=== PATIENT | female | born 2000 | race Caucasian/White ===

== ENCOUNTER 2022-06-14 13:56 | Emergency (ER) | payer SELFPAY ==
[2022-06-14] MEDS ORDERED: Lidocaine Viscous Sol 2% 15 ml UD Cup ONE ×2 (14:46→14:47)
[2022-06-14] MEDS ORDERED: Mag-Al Plus 1200 MG/1200 MG/120 MG/30 ML UDCUP ONE (14:46)
[2022-06-14] MEDS ORDERED: Famotidine 20 MG TAB ONE (14:46)
== END 2022-06-14 15:55 | disposition home or self-care (01) ==
LOC: NAV ERS 13:56
DX: K21.9 Gastro-esophageal reflux disease without esophagitis (principal); K59.00 Constipation, unspecified
CPT/HCPCS: 99283